=== PATIENT | male | born 1970 | race Caucasian/White ===

== ENCOUNTER 2020-08-03 20:39 | Observation (INO) ==
[2020-08-03] MEDS ORDERED: methylPREDNISolone 125 MG/2 ML VIAL IVP ONE (21:11)
[2020-08-03] MEDS ORDERED: Ipratropium/Albuterol Neb 3 ML IH ONE (21:11)
[2020-08-03 21:23] LABS: Basophils # 0.1 K/mcL (0.0-0.2); Basophils % 0.6 %; Eosinophils # 0.2 K/mcL (0.0-0.6); Eosinophils % 1.6 %; Hematocrit 44.5 % (37.5-50.1); Hemoglobin 15.1 g/dL (12.9-16.9); Immature Granulocytes % 0.9 % (0-4); Lymphocytes # 3.2 K/mcL (0.6-4.6); Lymphocytes % 30.7 %; Mean Corpuscular HGB Conc 33.9 g/dL (31.6-35.5); Mean Corpuscular Hemoglobin 29.3 pg (28.0-33.3); Mean Corpuscular Volume 86.2 fL (83.0-100.0); Mean Platelet Volume 11.7 fL (9.4-12.4); Monocytes # 0.8 K/mcL (0.0-1.3); Monocytes % 7.2 %; Neutrophils # 6.2 K/mcL (1.6-8.9); Platelet Count 213 K/mcL (140-400); Red Blood Count 5.16 M/mcL (4.19-5.50); Red Cell Distribution Width 12.6 % (11.5-14.5); White Blood Count 10.5 K/mcL (4.3-11.1)
[2020-08-03 21:29] LABS: INR 0.9; Prothrombin Time 10.3 Seconds (9.4-12.1)
[2020-08-03 21:32] LABS: Activated Partial Thrombo Time 35.1 Seconds (26.0-36.0)
[2020-08-03 21:38] LABS: BUN/Creatinine Ratio 20 (6-26); Blood Urea Nitrogen 16 mg/dL (6-20); Calcium 9.2 mg/dL (8.6-10.3); Carbon Dioxide 25 mEq/L (23-29); Chloride 100 mEq/L (98-107); Glucose 345 mg/dL (70-105); Osmolality,Calculated 293 (280-300); Potassium 4.1 mEq/L (3.5-5.1); Sodium 134 mEq/L (136-145); Troponin I 0.04 ng/mL (< 0.04); eGFR For African Americans > 60 (> 60); eGFR For Non-African Americans > 60 (> 60)
[2020-08-03 22:03] LABS: Adenovirus Not Detected (Not Detect); Bordetella Pertussis Not Detected (Not Detect); Chlamydophila pneumoniae Not Detected (Not Detect); Coronavirus 229E Not Detected (Not Detect); Coronavirus HKU1 Not Detected (Not Detect); Coronavirus NL63 Not Detected (Not Detect); Coronavirus OC43 Not Detected (Not Detect); Human Metapneumovirus Not Detected (Not Detect); Human Rhinovirus/Enterovirus Not Detected (Not Detect); Influenza A Subtype 2009 H1 Not Detected (Not Detect); Influenza B Not Detected (Not Detect); Mycoplasma pneumoniae Not Detected (Not Detect); Parainfluenza Virus 1 Not Detected (Not Detect); Parainfluenza Virus 2 Not Detected (Not Detect); Parainfluenza Virus 3 Not Detected (Not Detect); Parainfluenza Virus 4 Not Detected (Not Detect); Respiratory Syncytial Virus Not Detected (Not Detect); SARS-CoV-2 Not Detected (Not Detect)
[2020-08-03] MEDS ORDERED: Insulin Regular, Human 100 UNIT/ML SQ ONE (22:03)
[2020-08-03] MEDS ORDERED: Azithromycin 500 MG in 0.9 % Sodium Chloride 250 ML IVPB ONE (22:21)
[2020-08-03] MEDS ORDERED: Aspirin 325 MG TABLET PO ONE (22:45)
[2020-08-04] MEDS ORDERED: Naloxone 0.4 MG/ML INJ IVP PRN ×2 (00:26→02:20)
[2020-08-04] MEDS ORDERED: Acetaminophen 325 MG TABLET PO PRN (00:26)
[2020-08-04] MEDS ORDERED: Nitroglycerin 0.4 MG TAB.SUBL SL PRN (00:40)
[2020-08-04] MEDS ORDERED: *HR* Dextrose 50 % in Water (Vial) 50 ML VIAL IVP PRN (00:42)
[2020-08-04] MEDS ORDERED: Dextrose Gel 15 GM/37.5 ML TUBE PO PRN ×2 (00:42)
[2020-08-04] MEDS ORDERED: D5% in Water 1,000 ML IVC PRN (00:42)
[2020-08-04] MEDS ORDERED: Insulin LISPRO 300 UNITS/3 ML VIAL SQ SCH ×2 (00:45→07:30)
[2020-08-04] MEDS: Pregabalin 50 MG CAPSULE PO SCH ×2 (03:26→08:10)
[2020-08-04] MEDS ORDERED: Ipratropium/Albuterol Neb 3 ML IH SCH (04:00)
[2020-08-04 04:04] LABS: Basophils % 0.3 %; Eosinophils % 0.1 %; Hemoglobin 15.3 g/dL (12.9-16.9); Immature Granulocytes % 1.3 % (0-4); Lymphocytes # 0.9 K/mcL (0.6-4.6); Lymphocytes % 10.1 %; Mean Corpuscular HGB Conc 33.3 g/dL (31.6-35.5); Mean Corpuscular Hemoglobin 28.5 pg (28.0-33.3); Mean Corpuscular Volume 85.7 fL (83.0-100.0); Mean Platelet Volume 11.6 fL (9.4-12.4); Monocytes # 0.1 K/mcL (0.0-1.3); Monocytes % 1.1 %; Neutrophils # 8.1 K/mcL (1.6-8.9); Platelet Count 211 K/mcL (140-400); Red Blood Count 5.37 M/mcL (4.19-5.50); Red Cell Distribution Width 12.6 % (11.5-14.5); Segmented Neutrophils % 87.1 %; White Blood Count 9.3 K/mcL (4.3-11.1)
[2020-08-04 04:16] LABS: BUN/Creatinine Ratio 20 (6-26); Blood Urea Nitrogen 17 mg/dL (6-20); Calcium 9.5 mg/dL (8.6-10.3); Carbon Dioxide 21 mEq/L (23-29); Chloride 100 mEq/L (98-107); Glucose 437 mg/dL (70-105); Osmolality,Calculated 294 (280-300); Potassium 4.2 mEq/L (3.5-5.1); Sodium 132 mEq/L (136-145); Troponin I 0.03 ng/mL (< 0.04); eGFR For African Americans > 60 (> 60); eGFR For Non-African Americans > 60 (> 60)
[2020-08-04 07:01] VITALS: BP 177/100
[2020-08-04] MEDS ORDERED: carvediloL 25 MG TABLET PO SCH (08:00)
[2020-08-04] MEDS ORDERED: Spironolactone 25 MG TABLET PO SCH (09:00)
[2020-08-04] MEDS ORDERED: Isosorbide MONOnitrate (24 HR) 30 MG TAB.ER.24H PO SCH (09:00)
[2020-08-04] MEDS ORDERED: Doxycycline 100 MG CAPSULE PO SCH (09:00)
[2020-08-04] MEDS ORDERED: lisinopriL 20 MG TABLET PO SCH (09:00)
[2020-08-04] MEDS ORDERED: Loratadine 10 MG TABLET PO SCH (09:00)
[2020-08-04] MEDS ORDERED: predniSONE 20 MG TABLET PO SCH (09:00)
[2020-08-04] MEDS ORDERED: Torsemide 20 MG TABLET PO SCH (09:00)
[2020-08-04] MEDS ORDERED: Aspirin Enteric Coated 81 MG Tablet PO SCH (09:00)
== END 2020-08-04 10:01 | disposition home or self-care (01) ==
LOC: EMEROOARM 20:39 → 3BNU 20:39 → SUATTDRO 23:06 → 3BNU 23:45
PROVIDERS: ADMIT Student in an Organized Health Care Education/Training Program; ATTEND Nurse Practitioner Adult Health

== ENCOUNTER 2022-08-27 09:07 | Inpatient (IN) ==
[2022-08-27] MEDS ORDERED: *HR* FentaNYL (PF) 100 MCG/2 ML VIAL IVP ONE (10:01)
[2022-08-27] MEDS ORDERED: Ondansetron 4 MG/2 ML VIAL IVP PRN (10:46)
[2022-08-27] MEDS ORDERED: Acetaminophen 325 MG TABLET PO PRN (10:46)
[2022-08-27] MEDS ORDERED: Naloxone 0.4 MG/ML INJ IVP PRN (10:46)
[2022-08-27] MEDS ORDERED: Melatonin 3 MG TABLET PO PRN (10:46)
[2022-08-27] MEDS ORDERED: *HR* OxyCODONE Immed Rel 5 MG TABLET PO PRN (10:46)
[2022-08-27] MEDS ORDERED: D5% in Water 1,000 ML IVC PRN (10:48)
[2022-08-27] MEDS ORDERED: *HR* Dextrose 50 % in Water (Syg) 50 ML SYRINGE IVP PRN (10:48)
[2022-08-27] MEDS ORDERED: Nitroglycerin 0.4 MG TAB.SUBL SL PRN (10:48)
[2022-08-27] MEDS ORDERED: Dextrose Gel 15 GM/37.5 ML TUBE PO PRN ×2 (10:48)
[2022-08-27 10:54] LABS: Basophils % 0.3 %; Eosinophils # 0.1 K/mcL (0.0-0.6); Eosinophils % 0.9 %; Hematocrit 49.5 % (37.5-50.1); Hemoglobin 16.1 g/dL (12.9-16.9); Immature Granulocytes % 0.5 % (0-4); Lymphocytes # 1.6 K/mcL (0.6-4.6); Lymphocytes % 10.6 %; Mean Corpuscular HGB Conc 32.5 g/dL (31.6-35.5); Mean Corpuscular Hemoglobin 27.9 pg (28.0-33.3); Mean Corpuscular Volume 85.8 fL (83.0-100.0); Mean Platelet Volume 11.2 fL (9.4-12.4); Monocytes # 1.2 K/mcL (0.0-1.3); Monocytes % 7.9 %; Platelet Count 245 K/mcL (140-400); Red Blood Count 5.77 M/mcL (4.19-5.50); Red Cell Distribution Width 13.5 % (11.5-14.5); Segmented Neutrophils % 79.8 %
[2022-08-27 11:19] LABS: Calcium 9.3 mg/dL (8.6-10.3); Potassium 3.6 mEq/L (3.5-5.1)
[2022-08-27] MEDS: Insulin LISPRO 300 UNITS/3 ML VIAL SUBQ SCH ×2 (13:25→17:34)
[2022-08-27] MEDS: Torsemide 20 MG TABLET PO SCH (17:34)
[2022-08-27] MEDS: *HR* Heparin 5,000 UNIT/ML VIAL SQ SCH (17:34)
[2022-08-27] MEDS: carvediloL 25 MG TABLET PO SCH (17:34)
[2022-08-27] MEDS: Nicotine 21 MG PATCH.TD24 TD SCH (19:55)
[2022-08-27] MEDS: rOPINIRole 1 MG TABLET PO SCH (20:07)
[2022-08-27] MEDS: Insulin DETEMIR 100 UNIT/ML X5UNITS SUBQ SCH (20:07)
[2022-08-27] MEDS ORDERED: Pregabalin 50 MG CAPSULE PO SCH (21:00)
[2022-08-27] MEDS: Budesonide/Formoterol 80/4.5 1 PUFF INH IH SCH (23:29)
[2022-08-28 04:45] LABS: Hematocrit 50.1 % (37.5-50.1); Mean Corpuscular HGB Conc 31.9 g/dL (31.6-35.5); Mean Corpuscular Hemoglobin 28.1 pg (28.0-33.3); Mean Platelet Volume 11.3 fL (9.4-12.4); Platelet Count 166 K/mcL (140-400); Red Blood Count 5.69 M/mcL (4.19-5.50); Red Cell Distribution Width 13.5 % (11.5-14.5)
[2022-08-28] MEDS: *HR* Heparin 5,000 UNIT/ML VIAL SQ SCH ×2 (05:29→19:34)
[2022-08-28] MEDS: carvediloL 25 MG TABLET PO SCH ×2 (08:44→19:34)
[2022-08-28] MEDS: Insulin LISPRO 300 UNITS/3 ML VIAL SUBQ SCH ×3 (08:44→19:34)
[2022-08-28] MEDS: Torsemide 20 MG TABLET PO SCH ×2 (08:45→19:34)
[2022-08-28] MEDS: Isosorbide MONOnitrate (24 HR) 30 MG TAB.ER.24H PO SCH (08:45)
[2022-08-28] MEDS: Aspirin Enteric Coated 81 MG Tablet PO SCH (08:45)
[2022-08-28] MEDS: Nicotine 21 MG PATCH.TD24 TD SCH (08:45)
[2022-08-28] MEDS: Sennosides/Docusate Sodium TABLET PO SCH (08:45)
[2022-08-28 09:10] LABS: Calcium 9.2 mg/dL (8.6-10.3); Potassium 3.6 mEq/L (3.5-5.1)
[2022-08-28] MEDS: Budesonide/Formoterol 80/4.5 1 PUFF INH IH SCH ×2 (09:56→21:34)
[2022-08-28] MEDS ORDERED: *HR* OxyCODONE Immed Rel 5 MG TABLET PO PRN (12:42)
[2022-08-28] MEDS ORDERED: Ondansetron 4 MG/2 ML VIAL IVP PRN (12:42)
[2022-08-28] MEDS ORDERED: *HR* FentaNYL (PF) 100 MCG/2 ML VIAL IVP PRN (12:42)
[2022-08-28] MEDS ORDERED: *HR* HYDROmorphone PF 0.5 MG/0.5 ML SYRINGE IVP PRN (12:42)
[2022-08-28] MEDS ORDERED: Ketorolac 30 MG/ML VIAL IVP PRN (14:45)
[2022-08-28] MEDS ORDERED: CeFAZolin Syr 2,000MG/20 ML 2,000 MG/20 ML SYRINGE IVPB ONE (14:56)
[2022-08-28] MEDS ORDERED: Ringers Solution, Lactated 1,000 ML IVC SCH (15:00)
[2022-08-28] MEDS ORDERED: Ropivacaine/PF 0.5% 30 ML VIAL ONE (15:02)
[2022-08-28] MEDS ORDERED: Lidocaine -MPF 2% 2 ML VIAL ONE (15:03)
[2022-08-28] MEDS ORDERED: *HR* Propofol 200 MG/20 ML VIAL IVP ONE (15:06)
[2022-08-28] MEDS ORDERED: *HR* Midazolam HCl 2 MG/2 ML VIAL ONE (15:06)
[2022-08-28] MEDS ORDERED: *HR* FentaNYL (PF) 100 MCG/2 ML VIAL ONE (15:06)
[2022-08-28] MEDS ORDERED: Ondansetron 4 MG/2 ML VIAL ONE (15:08)
[2022-08-28] MEDS ORDERED: Lidocaine HCL 4 ML Topical Solution (Laryng-O-Jet Kit Sterile Pak) TP ONE (15:10)
[2022-08-28] MEDS ORDERED: Lidocaine/EPI 1:200k 1% PF 10 ML VIAL ONE (16:04)
[2022-08-28] MEDS ORDERED: Morphine Sulfate 2 MG/ML SYRINGE IVP PRN (17:44)
[2022-08-28] MEDS ORDERED: Morphine Sulfate 2 MG/ML SYRINGE IVP ONE (17:50)
[2022-08-28] MEDS ORDERED: Aspirin 81 MG TAB.CHEW PO ONE (17:50)
[2022-08-28] MEDS: rOPINIRole 1 MG TABLET PO SCH (19:43)
[2022-08-28] MEDS ORDERED: Latanoprost 2.5 ML BOTTLE BOTH EYES SCH (21:00)
[2022-08-28] MEDS: Insulin DETEMIR 100 UNIT/ML X5UNITS SUBQ SCH (21:45)
[2022-08-29 01:29] LABS: Basophils % 0.1 %; Hematocrit 46.5 % (37.5-50.1); Hemoglobin 15.3 g/dL (12.9-16.9); Immature Granulocytes % 0.6 % (0-4); Lymphocytes % 6.9 %; Mean Corpuscular HGB Conc 32.9 g/dL (31.6-35.5); Mean Corpuscular Hemoglobin 28.1 pg (28.0-33.3); Mean Corpuscular Volume 85.3 fL (83.0-100.0); Monocytes # 0.5 K/mcL (0.0-1.3); Monocytes % 3.4 %; Neutrophils # 12.7 K/mcL (1.6-8.9); Platelet Count 241 K/mcL (140-400); Red Blood Count 5.45 M/mcL (4.19-5.50); Red Cell Distribution Width 13.2 % (11.5-14.5); White Blood Count 14.3 K/mcL (4.3-11.1)
[2022-08-29 01:47] LABS: Potassium 3.8 mEq/L (3.5-5.1)
[2022-08-29] MEDS: *HR* Heparin 5,000 UNIT/ML VIAL SQ SCH (05:37)
[2022-08-29] MEDS: Budesonide/Formoterol 80/4.5 1 PUFF INH IH SCH (07:50)
[2022-08-29] MEDS: Nicotine 21 MG PATCH.TD24 TD SCH (09:03)
[2022-08-29] MEDS: Torsemide 20 MG TABLET PO SCH (09:04)
[2022-08-29] MEDS: Aspirin Enteric Coated 81 MG Tablet PO SCH (09:04)
[2022-08-29] MEDS: carvediloL 25 MG TABLET PO SCH (09:04)
[2022-08-29] MEDS: Isosorbide MONOnitrate (24 HR) 30 MG TAB.ER.24H PO SCH (09:05)
[2022-08-29] MEDS: Sennosides/Docusate Sodium TABLET PO SCH (09:20)
[2022-08-29] MEDS: Insulin LISPRO 300 UNITS/3 ML VIAL SUBQ SCH ×2 (09:20→12:17)
[2022-08-29 11:41] VITALS: BP 162/79; PULSE 107; TEMP 98.3; O2SAT 92
== END 2022-08-29 15:43 | disposition home or self-care (01) | DRG 314 ==
LOC: EMEROOARM 09:07 → 3ANU 09:07 → SUATTDRO 10:46 → 3ANU 12:06 → 2ANU 08-28 18:16
PROVIDERS: ADMIT Internal Medicine; ATTEND Family Medicine